=== PATIENT | female | born 1970 | race African-American/Black ===

== ENCOUNTER 2023-10-16 06:41 | Inpatient (IN) | payer BC ==
[2023-10-10 13:46] VITALS: BMI 33.9
[2023-10-16] MEDS ORDERED: PROPOFOL 40 ML ONE (07:16)
[2023-10-16] MEDS ORDERED: MIDAZOLAM HCL 2 MG/2 ML SINGLE DOSE VIAL ONE ×2 (07:16→10:59)
[2023-10-16] MEDS ORDERED: BUPIVACAINE HCL/PF 0.5% (5 MG/ML) 30 ML VIAL IJ ONE (07:18)
[2023-10-16] MEDS ORDERED: BUPIVACAINE LIPOSOME/PF (EXPAREL) 266 MG/20 ML VIAL ONE (07:19)
[2023-10-16] MEDS ORDERED: BUPIVACAINE HCL/PF 0.5% (5MG/ML) 10 ML VIAL ONE (08:46)
[2023-10-16] MEDS ORDERED: VANCOMYCIN 1,000 MG VIAL (RESTRICTED TO ID ONLY) IVPB ONE (09:59)
[2023-10-16] MEDS ORDERED: ceFAZolin 2 GRAM PREMIX BAG IVPB ONE (10:10)
[2023-10-16] MEDS ORDERED: DEXAMETHASONE SOD PHOSPHATE 4 MG/1 ML VIAL ONE (10:20)
[2023-10-16] MEDS ORDERED: ceFAZolin SODIUM 1 GM VIAL ONE ×2 (10:20→12:10)
[2023-10-16] MEDS ORDERED: TRANEXAMIC ACID 1000 MG/10 ML VIAL ONE ×2 (10:20→12:10)
[2023-10-16] MEDS ORDERED: ONDANSETRON 4 MG/2 ML VIAL ONE (10:20)
[2023-10-16] MEDS ORDERED: PHENYLEPHRINE HCL 10 MG/1 ML SINGLE DOSE VIAL ONE (10:20)
[2023-10-16] MEDS ORDERED: VANCOMYCIN 1,000 MG VIAL (RESTRICTED TO ID ONLY) ONE (10:20)
[2023-10-16] MEDS ORDERED: ePHEDrine SULFATE 50 MG/1 ML AMPULE ONE (10:31)
[2023-10-16] MEDS ORDERED: PROPOFOL 20 ML ONE (12:24)
[2023-10-16] MEDS ORDERED: ONDANSETRON 4 MG/2 ML VIAL IVPUSH PRN (13:13)
[2023-10-16] MEDS ORDERED: MAG HYDROX/AL HYDROX/SIMETH 30 ML UNIT-DOSE CUP PO PRN (13:13)
[2023-10-16] MEDS ORDERED: MAGNESIUM HYDROX 2400MG/30ML ORAL SUSPENSION 30 ML CUP PO PRN (13:13)
[2023-10-16] MEDS ORDERED: LACTATED RINGERS SOLUTION 1,000 ML IV SCH ×2 (13:15→13:30)
[2023-10-16] MEDS ORDERED: oxyCODONE HCL 5 MG TABLET PO PRN (13:27)
[2023-10-16] MEDS ORDERED: ACETAMINOPHEN 1000 MG/100 ML BAG IVPB ONE (13:45)
[2023-10-16] MEDS: KETOROLAC TROMETHAMINE 30 MG/1 ML VIAL IVPUSH SCH ×2 (13:46→20:16)
[2023-10-16] MEDS ORDERED: KETOROLAC TROMETHAMINE 30 MG/1 ML VIAL ONE (13:55)
[2023-10-16] MEDS: oxyCODONE HCL 5 MG TABLET PO PRN ×2 (17:48→22:20)
[2023-10-16] MEDS: CEFAZOLIN SODIUM 2 GM in DEXTROSE 5%-WATER 100 ML IVPB SCH ×2 (17:48→22:20)
[2023-10-16] MEDS: ACETAMINOPHEN 500 MG TABLET (FP) PO SCH (20:17)
[2023-10-16] MEDS: ASPIRIN 81 MG CHEWABLE TABLETS PO SCH (21:11)
[2023-10-16] MEDS: SENNOSIDES/DOCUSATE COMBO (SENNA PLUS) TABLET (UD) PO SCH (21:11)
[2023-10-16] MEDS: CELECOXIB 200 MG CAPSULE PO SCH (21:11)
[2023-10-16] MEDS: GABAPENTIN 300 MG CAPSULE PO SCH (21:11)
[2023-10-16] MEDS ORDERED: oxyCODONE HCL 10 MG SUSTAINED ACTING TABLET PO SCH (22:00)
[2023-10-17] MEDS: ACETAMINOPHEN 500 MG TABLET (FP) PO SCH ×4 (01:18→20:16)
[2023-10-17] MEDS: oxyCODONE HCL 5 MG TABLET PO PRN ×5 (01:19→20:16)
[2023-10-17] MEDS: CEFAZOLIN SODIUM 2 GM in DEXTROSE 5%-WATER 100 ML IVPB SCH (05:33)
[2023-10-17 08:31] LABS: HEMATOCRIT 30.2 % (32.4-45.2); HEMOGLOBIN 9.6 G/dL (10.7-15.3); MCH 23.5 pg (25.7-33.7); MCHC 31.8 g/dl (32.0-36.0); MEAN CELL VOLUME 74.1 fl (80-96); MEAN PLT VOLUME 8.1 fl (7.5-11.1); PLATELET COUNT 379.4 10^3/uL (134-434); RBC 4.08 10^6/uL (3.60-5.2); RDW 17.8 % (11.6-15.6); WHITE BLOOD COUNT 10.3 10^3/uL (4.0-10.8)
[2023-10-17] MEDS: CELECOXIB 200 MG CAPSULE PO SCH ×2 (09:09→21:43)
[2023-10-17] MEDS: PANTOPRAZOLE 40 MG TABLET PO SCH (09:09)
[2023-10-17] MEDS: SENNOSIDES/DOCUSATE COMBO (SENNA PLUS) TABLET (UD) PO SCH ×2 (09:09→21:44)
[2023-10-17] MEDS: ASPIRIN 81 MG CHEWABLE TABLETS PO SCH ×2 (09:09→21:43)
[2023-10-17] MEDS: GABAPENTIN 300 MG CAPSULE PO SCH ×2 (09:09→21:44)
[2023-10-17 09:11] LABS: CALCIUM 8.8 mg/dl (8.5-10.1); CREATININE 0.9 mg/dl (0.6-1.3); POTASSIUM 4.1 mmol/L (3.5-5.1)
[2023-10-17] MEDS ORDERED: PATIENT'S OWN MEDICATION (NON-FORMULARY) (Lisinopril/Hydrochlorothiazide [Lisinopril-Hctz PO SCH (10:00)
[2023-10-17] MEDS: LISINOPRIL 20 MG TABLET PO SCH (10:04)
[2023-10-17] MEDS: HYDROCHLOROTHIAZIDE 25 MG TABLET (FP) PO SCH (10:04)
[2023-10-18] MEDS: oxyCODONE HCL 5 MG TABLET PO PRN ×4 (06:01→22:24)
[2023-10-18] MEDS: ACETAMINOPHEN 500 MG TABLET (FP) PO SCH ×4 (06:01→22:09)
[2023-10-18 07:57] LABS: HEMATOCRIT 25.3 % (32.4-45.2); MCH 23.7 pg (25.7-33.7); MCHC 31.7 g/dl (32.0-36.0); MEAN CELL VOLUME 74.7 fl (80-96); PLATELET COUNT 312.9 10^3/uL (134-434); RBC 3.39 10^6/uL (3.60-5.2); RDW 17.8 % (11.6-15.6); WHITE BLOOD COUNT 8.6 10^3/uL (4.0-10.8)
[2023-10-18] MEDS: ASPIRIN 81 MG CHEWABLE TABLETS PO SCH ×2 (09:16→22:09)
[2023-10-18] MEDS: PANTOPRAZOLE 40 MG TABLET PO SCH (09:16)
[2023-10-18] MEDS: GABAPENTIN 300 MG CAPSULE PO SCH ×2 (09:16→22:09)
[2023-10-18] MEDS: CELECOXIB 200 MG CAPSULE PO SCH ×2 (09:16→22:09)
[2023-10-18] MEDS: SENNOSIDES/DOCUSATE COMBO (SENNA PLUS) TABLET (UD) PO SCH ×2 (09:17→22:09)
[2023-10-18] MEDS: HYDROCHLOROTHIAZIDE 25 MG TABLET (FP) PO SCH (09:20)
[2023-10-18] MEDS: LISINOPRIL 20 MG TABLET PO SCH (09:21)
[2023-10-19] MEDS: ACETAMINOPHEN 500 MG TABLET (FP) PO SCH ×2 (02:05→09:38)
[2023-10-19 09:13] VITALS: BP 155/73; PULSE 110; RESP 18; TEMP 99.4
[2023-10-19] MEDS: ASPIRIN 81 MG CHEWABLE TABLETS PO SCH (09:39)
[2023-10-19] MEDS: HYDROCHLOROTHIAZIDE 25 MG TABLET (FP) PO SCH (09:39)
[2023-10-19] MEDS: LISINOPRIL 20 MG TABLET PO SCH (09:40)
[2023-10-19] MEDS: PANTOPRAZOLE 40 MG TABLET PO SCH (09:40)
[2023-10-19] MEDS: GABAPENTIN 300 MG CAPSULE PO SCH (09:40)
[2023-10-19] MEDS: CELECOXIB 200 MG CAPSULE PO SCH (09:41)
[2023-10-19] MEDS: SENNOSIDES/DOCUSATE COMBO (SENNA PLUS) TABLET (UD) PO SCH (09:41)
== END 2023-10-19 14:40 | disposition home or self-care (01) | DRG 470 ==
LOC: FM/S 06:41
PROVIDERS: ADMIT Orthopaedic Surgery Orthopaedic Surgery of the Spine; ATTEND Orthopaedic Surgery Orthopaedic Surgery of the Spine
PROC: 0SRD0J9 Replacement of Left Knee Joint with Synthetic Substitute, Cemented, Open Approach (ICD-10-PCS; principal; 2023-10-16 10:32)
DX: M17.12 Unilateral primary osteoarthritis, left knee (principal); I10 Essential (primary) hypertension; E66.9 Obesity, unspecified; Z68.33 Body mass index [BMI] 33.0-33.9, adult
CPT/HCPCS: 36415; 73560-TC-LT-FY; 80048; 85027; 88305-TC; 88311-TC; 94760; 97010-GP; 97116-GP; 97162-GP; C1713; C1776; C1889